=== PATIENT | male | born 1980 | race Caucasian/White ===

== ENCOUNTER 2019-09-09 15:22 | Emergency (ER) | payer OTHER ==
[~2019-09-09] VITALS: Ht 190.5 cm; Wt 95.3 kg
[~2019-09-09 15:22] MED LIST: GABAPENTIN 100100 MG; HYDROCODONE-AP1 EAC6 PO; IBUPROFEN 800800 M1 PO; PENICILLIN VK500 M1 PO; TRAZODONE HCL50 MG PO; ZOLOFT25 MG PO; [UNRECOGNIZED DRUG - REMARK]
[2019-09-09] MEDS ORDERED: KEFLEX500 M1 PO (17:06)
[2019-09-09] MEDS ORDERED: TYLENOL WITH CO1 TA1 PO (17:06)
[2019-09-09 17:13] VITALS: BP 145/75
== END 2019-09-09 17:14 | disposition home or self-care (01) ==
LOC: M.ERS 15:22
DX: S61.012A Laceration without foreign body of left thumb without damage to nail, initial encounter (principal); Z87.442 Personal history of urinary calculi; Z88.2 Allergy status to sulfonamides; W26.0XXA Contact with knife, initial encounter; Y93.89 Activity, other specified; Y92.89 Other specified places as the place of occurrence of the external cause; Y99.8 Other external cause status

== ENCOUNTER 2021-01-11 18:45 | Emergency (ER) | payer OTHER ==
[~2021-01-11] VITALS: Ht 188 cm; Wt 108.9 kg
[~2021-01-11 18:45] MED LIST changes: +KEFLEX500 M1 PO; +TYLENOL WITH CO1 TA1 PO
[2021-01-11 19:54] VITALS: BP 144/98
== END 2021-01-11 21:45 | disposition left against medical advice (07) ==
LOC: M.ERS 18:45
DX: T63.481A Toxic effect of venom of other arthropod, accidental (unintentional), initial encounter (principal); Z53.21 Procedure and treatment not carried out due to patient leaving prior to being seen by health care provider